=== PATIENT | female | born 1940 | race Caucasian/White ===

== ENCOUNTER 2019-12-06 10:02 | Inpatient (IN) | payer MEDICARE, SELFPAY ==
[2019-12-06] VITALS (28 sets, daily range): BP systolic 68–131; BP diastolic 32–91; PULSE 72–126; RESP 14–28; TEMP 36.2–36.6; O2SAT 83–98
--- NOTE | ~2019-12-06 | CT_ITS ---
EXAMINATION: CT brain wo con DATE: 12/06/2019 11:20 INDICATION: Lethargy. TECHNIQUE: Computed tomography (CT) of the head was performed without intravenous contrast. The dose- length product was 529.67 mGy-cm. The mA was adjusted according to patient size. Iterative reconstruc tion technique was employed. COMPARISON: No prior studies for comparison. FINDINGS: Generalized atrophy. Prominence of the lateral ventricles. There are scattered moderate per iventricular and subcortical white matter changes, most likely related to small vessel ischemic disea se (microangiopathy). No acute intracranial hemorrhage, infarction, mass or mass effect. No midline s hift. Chronic right cerebellar infarction. IMPRESSION: 1. No acute intracranial abnormality. 2: Prominent lateral ventricles which may represent hydrocephalus ex vacuo or normal pressure hydroc ephalus. 3: Chronic right cerebellar infarction. 4: Chronic age-related findings. Reviewed, dictated and finalized at location A. E PRINCIPAL SOLUTION SPECIALIST IMPRESSION: 1. No acute intracranial abnormality. 2: Prominent lateral ventricles which may represent hydrocephalus ex vacuo or normal pressure hydrocephalus. 3: Chronic right cerebellar infarction. 4: Chronic age-related findings.
--- NOTE | ~2019-12-06 | XR_ITS ---
EXAMINATION: XR chest 1V portable EXAM DATE: 12/07/2019 15:14 INDICATION: Follow-up possible pneumonia. TECHNIQUE: Portable AP frontal chest x-ray was obtained. Comparison is made to prior examination from 12/06/2019. FINDINGS: Small amount of linear retrocardiac opacity probably subsegmental atelectasis. The lungs ar e otherwise clear. There are no pleural effusions. The cardiomediastinal silhouette is within rebecca l limits. There is no pneumothorax suspected. The bones and soft tissues are unremarkable. IMPRESSION: Small amount of linear retrocardiac opacity probably subsegmental atelectasis. Reviewed, dictated and finalized at location A. IMPRESSION: Small amount of linear retrocardiac opacity probably subsegmental a telectasis.
--- NOTE | ~2019-12-06 | XR_ITS ---
EXAMINATION: XR chest 1V portable 12/06/2019 11:07 INDICATION: Lethargy. Low heart rate. PROCEDURE: AP portable chest COMPARISON: 11/12/2018 FINDINGS: Subtle left basilar infiltrates, atelectasis versus developing pneumonia. The cardiomediast inal silhouette is within normal limits. There are no pleural effusions. There is no pneumothorax s uspected. IMPRESSION: 1: Subtle left basilar infiltrates, atelectasis versus developing pneumonia. Reviewed, dictated and finalized at location A. INGS FINISHER
--- NOTE | 2019-12-06 10:05 | ECG_ITS ---
Measurements Intervals [place] Rate: 116 P: 70 MS: 106 QRS: 140 QRSD: 113 T: 57 QT: 358 QTc: 497 Interpretive Statements SINUS TACHYCARDIA WITH SHORT MS INTERVAL ATRIAL PREMATURE COMPLEX RIGHT ATRIAL ENLARGEMENT POSSIBLE LEFT ATRIAL ENLARGEMENT RIGHT AXIS DEVIATION INCOMPLETE RIGHT BUNDLE BRANCH BLOCK BORDERLINE ST-T WAVE ABNORMALITY- ANTERIOR LEADS BASELINE ARTIFACT- I, II, III, AVL, AVF, V3-V4 ABNORMAL ECG Electronically Signed On 12-06-2019 12:44:52 HAND SCREEN PRINTER by Torsten Thomas D.O.
--- NOTE | 2019-12-06 10:10 | ED.SOB ---
HPI - SOB/Dyspnea General Chief Complaint: Shortness of Breath/Dyspnea Stated Complaint: lethargic Time Seen by Provider: 12/06/19 10:11 Source: family (pt's son) and RN notes reviewed Mode of arrival: EMS Limitations: dementia History of Present Illness HPI Narrative: Pt is a 79 y/o female with a Hx of dementia, who presents to the ED via EMS with c/o SOB and lethargy. According to the pt's son, she has been increasingly lethargic for the past week. He notes that she has also been laboring to breathe. Pt's son states that her skin has started becoming more blue/purple in color. He notes that the pt hasn't had any significant cough or fever recently. Pt's son states that she had a similar episode in 2017, and notes that she was diagnosed with sepsis and pneumonia. HPI limited due to the pt's dementia. HPI given by pt's son. MD elicited complaint: shortness of breath Pertinent past history: pneumonia Onset (ago): week(s) (1) Known history of: other (pneumonia) Associated symptoms: other (blue/purple skin discoloration (per son)) Related Data Allergies Allergy/AdvReac Type Severity Reaction Status Date / Time No Known Allergies Allergy Unverified 11/12/18 15:13 Review of Systems Review of Systems: Narrative: ROS limited due to the pt's dementia. ROS given by pt's son. Constitutional: Constitutional: Denies fever(s) and Reports lethargy Respiratory: Respiratory: Denies cough and Reports dyspnea Integumentary/Breasts: Skin/Breast: Reports change in pigmentation (blue/purple skin discoloration) [facility] Past Medical History Medical History (Updated 12/18/19 @ 20:09 by Vandana Pacheco MD) Anxiety Cerebrovascular disease Completed stroke Dementia HLD (hyperlipidemia) HTN (hypertension) Hypothyroidism Surgical History Surgical History (Updated 12/06/19 @ 20:36 by Reena Reid PA-C) Hx of section x2 Status post cataract extraction Family History Family History Sibling Diabetes mellitus Patient's sister is Mother Family history of malignant neoplasm Patient's mother is Father Patient's father is Sibling Patient's brother is Other Patient's brother is in good health Patient's sister is in good health Social History Social History (Updated 12/06/19 @ 20:37 by Reena Reid PA-C) Social History: The patient lives in [place] with her son and [id number]. 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 She started smoking at the age of 16, roughly 1 pack per day, and quit about 5 years ago. No alcohol or drug use. Her son Dimas Layne is her healthcare power of assistant city attorney. She is a do not resuscitate. Smoking packs per day: 2 Smoking cigarettes per day: 40.0 Years smoked: 60 Smoking pack-years: 120.00 Smoking status: Former smoker Tobacco type: cigarettes Smoking end date: 10/01/13 Alcohol intake: never Substance use: never Gender identity (if verbalized by the patient): Female Spiritual care concerns: No Agree to blood products: Yes Exam Const: General: ill appearing HENMT: Head: normocephalic Neck: Neck: normal visual inspection Resp: Effort & Inspection: respiratory distress and tachypneic Auscultation: clear to auscultation bilaterally Cardio: Rate: tachycardic Rhythm: regular rhythm GI: GI Palp: No abdominal tenderness and Yes Soft to palpation Skin: General skin exam: other (purplish discoloration of extremities) Neuro: General: other (pt is non-verbal; moves both arms spontaneously) Extrem: General: normal to inspection, full ROM and no pedal edema Course Consultations Consultation #1: Discussed case with PA to hospitalist, Reena Reid. Accepts admission to Dr. Blue. Date: 12/06/19 Time: 12:11 Vital Signs Vital signs: Vital Signs Temperature 36.2 C L
[2019-12-06 10:33] LABS: Base Excess ABG -16.8 mEq/l (+/-2.0); Carboxyhemoglobin 0.8 % THb (0-2.0); Fractional Inspired Oxygen 36 %; HCO3 ABG 7.7 mEq/l (22.0-26.0); Methemoglobin ABG 0.3 %THb (0-1.5); Oxygen Content ABG 22.2 %vol (16.0-22.0); Oxygen Saturation ABG 93.1 % (95.0-100.0); Oxyhemoglobin 93.1 % THb (90.0-100.0); PO2 ABG 74.7 mmHg (80.0-100.0); PO2 FiO2 Ratio Arterial Blood 2.07 %; Reduced Hemoglobin 5.8 %THb (0-5.0)
[2019-12-06 10:35] LABS: PCO2 ABG 18.1 mmHg (35.0-45.0); pH ABG 7.245 (7.350-7.450)
[2019-12-06 10:36] LABS: Device NASAL CANNULA; Site Drawn LEFT BRACHIAL
[2019-12-06 10:42] LABS: Basophils Absolute Auto 0.1 K/mm3 (0.0-0.1); Basophils Percent Auto 0.5 % (0.2-1.2); Eosinophils Percent Auto 0.1 % (0-4.4); Hemoglobin 16.8 g/dL (12.0-15.0); Immature Granulocyte Absolute 0.07 K/mm3 (0.00-0.031); Immature Granulocyte Percent A 0.5 % (0-0.5); Lymphocytes Absolute Auto 2.32 K/mm3 (0.9-3.2); Lymphocytes Percent Auto 15.1 % (18.3-44.2); Mean Corpuscular HGB Conc 28.5 g/dl (32-36); Mean Corpuscular Hemoglobin 28.7 pg (26-34); Mean Corpuscular Volume 100.9 fl (80-100); Mean Platelet Volume 12.6 fl (7.4-10.4); Monocytes Absolute Auto 0.5 K/mm3 (0.1-0.6); Monocytes Percent Auto 3.2 % (2.6-8.5); Neutrophils Absolute Auto 12.4 K/mm3 (1.3-6.7); Neutrophils Percent Auto 80.6 % (45.5-73.1); Platelet Count Result 237 k/mm3 (150-375); Red Blood Count 5.85 M/mm3 (4.2-5.4); Red Cell Distribution Width 17.9 % (11.5-14.5); White Blood Count 15.4 K/mm3 (4.5-10.0)
[2019-12-06 10:57] LABS: Lactic Acid Reflex 4.7 mmol/L (0.7-2.1)
[2019-12-06 10:58] LABS: Alanine Aminotransferase 34 U/L (4-35); Albumin Level 4.3 g/dL (3.5-5.1); Alkaline Phosphatase 149 U/L (38-126); Aspartate Amino Transferase 35 U/L (14-36); Bilirubin,Total 0.4 mg/dL (0.2-1.3); Blood Urea Nitrogen 115 mg/dL (7-17); Calcium 9.3 mg/dL (8.4-10.2); Carbon Dioxide 11 mmol/L (22-30); Chloride 146 mmol/L (98-107); Estimated Glomerular Filt Rate 20; Glucose 211 mg/dL (65-105); Potassium 3.1 mmol/L (3.4-5.0); Sodium 173 mmol/L (137-145)
[2019-12-06 11:00] LABS: Add Urine Microscopic? YES; Appearance Urine Cloudy (Clear); Bacteria Urine Trace /hpf; Bilirubin Urine Negative (Negative); Blood Urine Negative (Negative); Color Urine Yellow (Yellow); Glucose Urine UA Negative (Negative); Ketones Urine Negative (Negative); Leukocyte Esterase Ur Negative LEU/UL (Negative); Mucus Urine Rare /lpf; Nitrate Urine Negative (Negative); Protein Urine 2+ mg/dL (Negative); RBC Urine 0-2 /hpf (0-2); Specific Grav Ur 1.025 (1.001-1.035); Squamous Epithelial Cell Urine Rare /hpf (Few); Urobilinogen Urine Negative mg/dL (<2.0); WBC Urine 0-3 /hpf
[2019-12-06 11:15] LABS: Partial Thromboplastin Time 24.7 SECONDS (22.3-36.8)
--- NOTE | 2019-12-06 13:28 | PC.NURSE ---
2nd liter ns hung and infusing wide open at 1315
[2019-12-06 13:40] LABS: Reflex Lactic Acid Yes or No Add Lactic
--- NOTE | 2019-12-06 13:50 | PC.NURSE ---
ns 600 cc bolus infused.
--- NOTE | 2019-12-06 14:24 | ADMGEN ---
This patient, Eve Olivo, was admitted to 3 Med Surg Room 305-01 @ 1415. Patient/family oriented to hospital policies and general routines including ID bracelet, bed and alarms, visiting hours, pain management, procedures, bathroom and other care routines, personal items, smoking policy, room service/diet, and visiting hours. Valuables list has been completed. Information on how to activate the Rapid Response Team has been discussed. Patient/Family are encouraged to report perceived risks to care and to ask questions if they do not understand what they are told or what they should do.
[2019-12-06] MEDS: DEXTROSE 5% 1,000 ML 1,000 ML 100 ML IV CONT (15:07)
[2019-12-06 17:18] LABS: Ammonia 15 umol/L (9-30)
[2019-12-06 17:20] LABS: Lactic Acid Reflex 4.1 mmol/L (0.7-2.1)
[2019-12-06 17:22] LABS: Blood Urea Nitrogen 102 mg/dL (7-17); Calcium 8.2 mg/dL (8.4-10.2); Carbon Dioxide 12 mmol/L (22-30); Chloride 142 mmol/L (98-107); Estimated CRCL calculation 17 ml/min; Estimated Glomerular Filt Rate 24; Glucose 125 mg/dL (65-105); Magnesium 2.8 mg/dL (1.6-2.3); Phosphorus 6.2 mg/dL (2.5-4.5); Potassium 3.3 mmol/L (3.4-5.0); Sodium 166 mmol/L (137-145)
[2019-12-06 17:49] LABS: Creatine Kinase 161 U/L (30-135)
[2019-12-06] MEDS: SODIUM CHLORIDE 0.45% 1,000 ML 75 ML IV CONT (17:51)
[2019-12-06 18:26] LABS: Folic Acid > 20.0 ng/mL (2.76->20)
[2019-12-06 18:30] LABS: Free T4 Free Thyroxine Reflex 0.73 ng/dL (0.78-2.19)
--- NOTE | 2019-12-06 20:29 | PM.IMHP ---
H&P: HPI History of Present Illness Chief complaint: Hypernatremia, Sepsis Narrative: Eve Olivo is a 79-year-old female with severe dementia who presented to the emergency department earlier this morning via EMS from home for evaluation of lethargy. Given her severe dementia, she is unable to provide a medical history and as such a majority of this history is obtained via a review of her electronic medical records as well as discussions with her son, Dimas, who is at bedside. The patient has lived with Dimas and his for the last couple of years. Her dementia is to the point where she is not able to hold a conversation with them, but he does note that she will sit in the living room and watch television and seems to have conversations with people who are not there, laughing frequently. She is able to help transfer to the commode and to the chair in the living room, but is otherwise not mobile. They have to encourage her to eat, and she typically consumes shakes that they make with Ensure. Over the past week or so, she has not been consuming as much as usual and really has not been drinking water either. She has become progressively more weak and sleepy. When sign went to check on her this morning, she appeared to be cyanotic with labored breathing. She was found to be profoundly dehydrated on labs with acute kidney injury (BUN 115, creatinine 2.40), hemoconcentration, and a sodium level of 173. Her lactic acid level was 4.7, and chest x-ray did demonstrate findings of possible pneumonia. With further questioning, Dimas denies that the patient has shown signs or symptoms of illness fever, cough, vomiting, and diarrhea. Review of Systems Review of Systems: Narrative: Due to the patient's severe dementia, she is unable to provide an accurate history and/or review of systems. [facility] Past Medical History Medical History (Updated 12/07/19 @ 15:29 by Sekou Blue MD) Anxiety Cerebrovascular disease Completed stroke Dementia HLD (hyperlipidemia) HTN (hypertension) Hypothyroidism Surgical History Surgical History (Updated 12/06/19 @ 20:36 by Reena Reid PA-C) Hx of section x2 Status post cataract extraction Family History Family History Sibling Diabetes mellitus Patient's sister is Mother Family history of malignant neoplasm Patient's mother is Father Patient's father is Sibling Patient's brother is Other Patient's brother is in good health Patient's sister is in good health Social History Social History (Updated 12/06/19 @ 20:37 by Reena Reid PA-C) Social History: The patient lives in [place] with her son and [id number]. 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 She started smoking at the age of 16, roughly 1 pack per day, and quit about 5 years ago. No alcohol or drug use. Her son Dimas Layne is her healthcare power of business attorney. She is a do not resuscitate. Smoking packs per day: 2 Smoking cigarettes per day: 40.0 Years smoked: 60 Smoking pack-years: 120.00 Smoking status: Former smoker Tobacco type: cigarettes Smoking end date: 10/01/13 Alcohol intake: never Substance use: never Gender identity (if verbalized by the patient): Female Spiritual care concerns: No Agree to blood products: Yes Meds Home Medications and Allergies Home Medications Medication Instructions Recorded Confirmed Type levothyroxine 75 mcg tablet 75 mcg PO DAILY #90 tablet 11/13/19 12/06/19 Rx loperamide [Anti-Diarrheal 1 mg PO DAILY 12/06/19 12/06/19 History (loperamide)] Allergies Allergy/AdvReac Type Severity Reaction Status Date / Time No Known Allergies Allergy Unverified 11/12/18 15:13 Vital Signs Vital Signs - 24 hr 12/06/19 09:59 12/06/19 10:10 12/06/19 10:15 Tem
[2019-12-06 20:57] LABS: Blood Urea Nitrogen 102 mg/dL (7-17); Carbon Dioxide 13 mmol/L (22-30); Chloride 142 mmol/L (98-107); Estimated CRCL calculation 17 ml/min; Estimated Glomerular Filt Rate 23; Glucose 83 mg/dL (65-105); Sodium 163 mmol/L (137-145)
[2019-12-07] VITALS: PULSE 103
[2019-12-07 01:02] LABS: Sodium 164 mmol/L (137-145)
--- NOTE | 2019-12-07 01:39 | PC.NURSE ---
Daylight Savings Time For Daylight Savings Time Ending in the Fall - Clocks are moved back. For Daylight Savings Time Beginning in the Spring - Clocks are moved ahead. For [facility], the time of change occurs at 0200 hrs. Time is taken from the sql server dba developer. This entry on the patient's chart recognizes the change in time reflected during documentation. Example: 2 entries for vital signs may be charted for 0200 hrs.
[2019-12-07 04:00] VITALS: PULSE 100
[2019-12-07 05:35] VITALS: BP 134/64; PULSE 111; RESP 20; TEMP 36.8; O2SAT 93
[2019-12-07] MEDS: LEVOTHYROXINE SODIUM 75 MCG TABLET PO (06:11)
[2019-12-07 06:26] LABS: Basophils Percent Auto 0.4 % (0.2-1.2); Eosinophils Percent Auto 0.2 % (0-4.4); Hematocrit 41.5 % (37.0-47.0); Hemoglobin 12.1 g/dL (12.0-15.0); Immature Granulocyte Absolute 0.05 K/mm3 (0.00-0.031); Immature Granulocyte Percent A 0.5 % (0-0.5); Lymphocytes Absolute Auto 1.96 K/mm3 (0.9-3.2); Lymphocytes Percent Auto 18.2 % (18.3-44.2); Mean Corpuscular HGB Conc 29.2 g/dl (32-36); Mean Corpuscular Hemoglobin 28.3 pg (26-34); Mean Corpuscular Volume 97.2 fl (80-100); Mean Platelet Volume 12.7 fl (7.4-10.4); Monocytes Absolute Auto 0.5 K/mm3 (0.1-0.6); Monocytes Percent Auto 4.7 % (2.6-8.5); Neutrophils Absolute Auto 8.2 K/mm3 (1.3-6.7); Platelet Count Result 134 k/mm3 (150-375); Red Blood Count 4.27 M/mm3 (4.2-5.4); Red Cell Distribution Width 16.3 % (11.5-14.5); White Blood Count 10.8 K/mm3 (4.5-10.0)
[2019-12-07 06:52] LABS: Blood Urea Nitrogen 94 mg/dL (7-17); Calcium 8.3 mg/dL (8.4-10.2); Carbon Dioxide 13 mmol/L (22-30); Chloride 144 mmol/L (98-107); Estimated CRCL calculation 18 ml/min; Estimated Glomerular Filt Rate 26; Glucose 85 mg/dL (65-105); Magnesium 2.8 mg/dL (1.6-2.3); Phosphorus 5.5 mg/dL (2.5-4.5); Potassium 3.4 mmol/L (3.4-5.0); Sodium 165 mmol/L (137-145)
[2019-12-07 07:20] LABS: Creatine Kinase 3769 U/L (30-135)
[2019-12-07 08:00] VITALS: PULSE 96
--- NOTE | 2019-12-07 08:54 | PC.NURSE ---
Tele results reviewed with Dr Blue as well as am lab results - orders.
[2019-12-07 09:58] LABS: Sodium 163 mmol/L (137-145)
--- NOTE | 2019-12-07 12:55 | PC.NURSE ---
Dr Blue notified of IV infiltration to L ACF - k pad ordered and applied.
[2019-12-07 14:34] LABS: Blood Urea Nitrogen 84 mg/dL (7-17); Calcium 8.2 mg/dL (8.4-10.2); Carbon Dioxide 18 mmol/L (22-30); Chloride 139 mmol/L (98-107); Estimated CRCL calculation 21 ml/min; Estimated Glomerular Filt Rate 29; Glucose 83 mg/dL (65-105); Potassium 3.1 mmol/L (3.4-5.0); Sodium 163 mmol/L (137-145)
--- NOTE | 2019-12-07 15:13 | PM.IMPN ---
Progress Note: A&P Assessment and Plan (1) Hypernatremia: Code(s): E87.0 - Hyperosmolality and hypernatremia Status: Acute Assessment and Plan: IV D5w with KCL Then D5/0.45% NaCL F/u lab (2) Acute kidney injury: Code(s): N17.9 - Acute kidney failure, unspecified Status: Acute Assessment and Plan: Improved from 2.4 to 1.7 with hydration (3) Pneumonia: Qualifiers: Laterality: left Lung location: lower lobe of lung Pneumonia type: due to unspecified organism Qualified Code(s): J18.9 - Pneumonia, unspecified organism Code(s): J18.9 - Pneumonia, unspecified organism Status: Acute Assessment and Plan: Ephemeral infiltrate on initial CXR Repeat CXR after hydration Day 2 ceftriaxone and azithromycin (4) Sepsis: Qualifiers: Sepsis acute organ dysfunction status: with acute organ dysfunction Sepsis type: sepsis due to unspecified organism Severe sepsis acute organ dysfunction type: acute renal failure Severe sepsis shock status: with septic shock Acute renal failure type: unspecified Qualified Code(s): A41.9 - Sepsis, unspecified organism; R65.21 - Severe sepsis with septic shock; N17.9 - Acute kidney failure, unspecified Code(s): A41.9 - Sepsis, unspecified organism Status: Acute Assessment and Plan: Pneumonia vs skin source vs nonifectious etiology (dehydration) (5) Metabolic encephalopathy: Code(s): G93.41 - Metabolic encephalopathy Status: Acute Assessment and Plan: Due to above (6) HTN (hypertension): Qualifiers: Hypertension type: essential hypertension Qualified Code(s): I10 - Essential (primary) hypertension Code(s): I10 - Essential (primary) hypertension Status: Acute Assessment and Plan: Monitor (7) Hypothyroidism: Qualifiers: Hypothyroidism type: acquired Qualified Code(s): E03.9 - Hypothyroidism, unspecified Code(s): E03.9 - Hypothyroidism, unspecified Status: Acute Assessment and Plan: Continue levothyroxine (8) Dementia: Qualifiers: Dementia type: vascular dementia Dementia behavioral disturbance: with behavioral disturbance Qualified Code(s): F01.51 - Vascular dementia with behavioral disturbance Code(s): F03.90 - Unspecified dementia without behavioral disturbance Status: Acute Assessment and Plan: Vascular with behavioral disturbance (resistance to care, cursing) PPS 30 at baseline, now likely 20 Family would like to meet with hospice (9) Dehydration: Code(s): E86.0 - Dehydration Status: Acute Assessment and Plan: IVF F/u lab (10) Cerebrovascular disease: Code(s): I67.9 - Cerebrovascular disease, unspecified Status: Acute Subjective Date/time seen: 12/07/19 15:13 Interval history: Admitted 12/05 due to lethargy. Loose stool 12/05. Eats some soft foods at baseline. Mostly smoothies. Hand fed. Straw to drink. Bed bound. Incontinent. Pressure sore right heel. Interacts some and smiles. Old stroke. Review of Systems Review of Systems: ROS unobtainable: unobtainable due to mental status Exam Narrative: Exam Narrative: General: Elderly female fidgeting in her hospital bed Skin: 1.5cm stage 2 ulcer right heel HEENT: EOMI, PERRL, pharyngeal mucosa pink and intact NECK: No JVD, adenopathy, or thyromegaly CHEST: Clear to auscultation. Normal effort. HEART: NL S1/S2, regular, no murmur ABDOMEN: BS+, soft, nontender, no mass, no bruits EXTREMITIES: No cyanosis, edema, or clubbing NEUROLOGIC: CN intact and symmetric to inspection. MUSCULOSKELETAL: diffuse muscle wasting PSYCH: Drowsy. Arouses easily. Resists exam. Does not follow commands. Objective Data Vital Signs Vital Signs: Vital Signs - 24 hr 12/06/19 14:15 12/06/19 14:54 12/06/19 16:00 Temperature 97.2 F L Pulse Rate 72 84 104 H Respiratory Rate 16 14 Blood Pres
--- NOTE | 2019-12-07 15:46 | PCSTNOTE ---
12-07-2019: ST bedside swallow evaluation unable to be completed this date.
[2019-12-07 16:15] VITALS: BP 96/72; PULSE 84; RESP 16; TEMP 36.4; O2SAT 92
[2019-12-07 17:45] LABS: Sodium 160 mmol/L (137-145)
[2019-12-07] MEDS: POTASSIUM CHLORIDE INJ 10 MEQ in DEXTROSE 5%/0.45% SOD CHL 1,000 ML 75 MEQ IV CONT (21:44)
[2019-12-07 22:00] VITALS: BP 115/46; PULSE 104; RESP 20; TEMP 36.7; O2SAT 98
[2019-12-07 22:37] LABS: Blood Urea Nitrogen 68 mg/dL (7-17); Calcium 7.9 mg/dL (8.4-10.2); Carbon Dioxide 11 mmol/L (22-30); Chloride 142 mmol/L (98-107); Estimated CRCL calculation 23 ml/min; Estimated Glomerular Filt Rate 31; Glucose 72 mg/dL (65-105); Potassium 3.8 mmol/L (3.4-5.0); Sodium 160 mmol/L (137-145)
[2019-12-08 06:00] VITALS: BP 105/50; PULSE 92; RESP 18; TEMP 36.3; O2SAT 93
[2019-12-08 06:37] LABS: Hematocrit 37.1 % (37.0-47.0); Hemoglobin 10.8 g/dL (12.0-15.0); Mean Corpuscular HGB Conc 29.1 g/dl (32-36); Mean Corpuscular Hemoglobin 28.4 pg (26-34); Mean Corpuscular Volume 97.6 fl (80-100); Mean Platelet Volume 12.6 fl (7.4-10.4); Platelet Count Result 118 k/mm3 (150-375); Red Cell Distribution Width 16.3 % (11.5-14.5); White Blood Count 9.8 K/mm3 (4.5-10.0)
[2019-12-08] MEDS: LEVOTHYROXINE SODIUM 75 MCG TABLET PO (06:54)
[2019-12-08 07:01] LABS: Blood Urea Nitrogen 54 mg/dL (7-17); Calcium 8.1 mg/dL (8.4-10.2); Carbon Dioxide 12 mmol/L (22-30); Chloride 141 mmol/L (98-107); Estimated CRCL calculation 26 ml/min; Estimated Glomerular Filt Rate 36; Glucose 82 mg/dL (65-105); Magnesium 2.5 mg/dL (1.6-2.3); Sodium 158 mmol/L (137-145)
--- NOTE | 2019-12-08 09:30 | PCSTNOTE ---
Please refer to the Bedside Swallow Evaluation in the EMR.
[2019-12-08] MEDS: POTASSIUM CHLORIDE INJ 10 MEQ in DEXTROSE 5%/0.45% SOD CHL 1,000 ML 75 MEQ IV CONT (10:49)
[2019-12-08 14:00] VITALS: BP 92/51; PULSE 98; RESP 18; TEMP 36.8; O2SAT 93
--- NOTE | 2019-12-08 16:46 | PM.IMPN ---
Progress Note: A&P Assessment and Plan (1) Hypernatremia: Code(s): E87.0 - Hyperosmolality and hypernatremia Status: Acute Assessment and Plan: IV D5/NaHCO3 alt with D5/0.45% Nacl F/u lab (2) Acute kidney injury: Code(s): N17.9 - Acute kidney failure, unspecified Status: Acute Assessment and Plan: Improved from 2.4 to 1.4 with hydration (3) Pneumonia: Qualifiers: Pneumonia type: due to unspecified organism Laterality: left Lung location: lower lobe of lung Qualified Code(s): J18.9 - Pneumonia, unspecified organism Code(s): J18.9 - Pneumonia, unspecified organism Status: Acute Assessment and Plan: Almost imperceptible infiltrate noted initial CXR Repeat CXR after hydration Day 3 ceftriaxone and azithromycin (4) Sepsis: Qualifiers: Sepsis type: sepsis due to unspecified organism Sepsis acute organ dysfunction status: with acute organ dysfunction Severe sepsis acute organ dysfunction type: acute renal failure Acute renal failure type: unspecified Severe sepsis shock status: with septic shock Qualified Code(s): A41.9 - Sepsis, unspecified organism; R65.21 - Severe sepsis with septic shock; N17.9 - Acute kidney failure, unspecified Code(s): A41.9 - Sepsis, unspecified organism Status: Acute Assessment and Plan: Pneumonia vs skin source vs nonifectious etiology (dehydration) (5) Metabolic encephalopathy: Code(s): G93.41 - Metabolic encephalopathy Status: Acute Assessment and Plan: Due to above (6) HTN (hypertension): Qualifiers: Hypertension type: essential hypertension Qualified Code(s): I10 - Essential (primary) hypertension Code(s): I10 - Essential (primary) hypertension Status: Acute Assessment and Plan: Monitor (7) Hypothyroidism: Qualifiers: Hypothyroidism type: acquired Qualified Code(s): E03.9 - Hypothyroidism, unspecified Code(s): E03.9 - Hypothyroidism, unspecified Status: Acute Assessment and Plan: Continue levothyroxine (8) Dementia: Qualifiers: Dementia type: vascular dementia Dementia behavioral disturbance: with behavioral disturbance Qualified Code(s): F01.51 - Vascular dementia with behavioral disturbance Code(s): F03.90 - Unspecified dementia without behavioral disturbance Status: Acute Assessment and Plan: Vascular with behavioral disturbance (resistance to care, cursing) PPS 30 at baseline, now likely 20 Family would like to meet with hospice (9) Dehydration: Code(s): E86.0 - Dehydration Status: Acute Assessment and Plan: IVF F/u lab (10) Cerebrovascular disease: Code(s): I67.9 - Cerebrovascular disease, unspecified Status: Acute Subjective Date/time seen: 12/08/19 16:46 Interval history: Slept most of the day. Woke up a bit more alert. Being hand fed by [id number]-sm-vip. Tolerating her soft foods so far. Speech therapist noted some difficulty on bedside swallow evaluation. However family does not wish to pursue swallow study as they are to meet with hospice this evening. Review of Systems Review of Systems: ROS unobtainable: unobtainable due to mental status Exam Narrative: Exam Narrative: General: Elderly female fidgeting in her hospital bed Skin: 1.5cm stage 2 ulcer right heel HEENT: EOMI, PERRL, pharyngeal mucosa pink and intact NECK: No JVD, adenopathy, or thyromegaly CHEST: Clear to auscultation. Normal effort. HEART: NL S1/S2, regular, no murmur ABDOMEN: BS+, soft, nontender, no mass, no bruits EXTREMITIES: No cyanosis, edema, or clubbing NEUROLOGIC: CN intact and symmetric to inspection. MUSCULOSKELETAL: diffuse muscle wasting PSYCH: Drowsy. Arouses easily. Resists exam. Does not follow commands. Objective Data Vital Signs Vital Signs: Vital Signs - 24 hr 12/07/19 22:00 12/08/19 06:00 12/08/19
[2019-12-08 22:00] VITALS: BP 110/47; PULSE 74; RESP 18; TEMP 36.2; O2SAT 91
[2019-12-09] MEDS: LEVOTHYROXINE SODIUM 75 MCG TABLET PO (05:55)
[2019-12-09 06:00] VITALS: BP 102/47; PULSE 85; RESP 20; TEMP 36.9; O2SAT 100
[2019-12-09 14:00] VITALS: BP 90/74; PULSE 84; RESP 18; TEMP 36.4; O2SAT 90
--- NOTE | 2019-12-09 16:42 | PM.IMPN ---
Progress Note: A&P Assessment and Plan (1) Hypernatremia: Code(s): E87.0 - Hyperosmolality and hypernatremia Status: Acute Assessment and Plan: IV D5/NaHCO3 alt with D5/0.45% Nacl F/u lab, sodium down to 158 and a creatinine at 1.4 today (2) Acute kidney injury: Code(s): N17.9 - Acute kidney failure, unspecified Status: Acute Assessment and Plan: Improved from 2.4 to 1.4 with hydration continue gentle hydration (3) Pneumonia: Qualifiers: Pneumonia type: due to unspecified organism Laterality: left Lung location: lower lobe of lung Qualified Code(s): J18.9 - Pneumonia, unspecified organism Code(s): J18.9 - Pneumonia, unspecified organism Status: Acute Assessment and Plan: Almost imperceptible infiltrate noted initial CXR Repeat CXR after hydration Day 4 ceftriaxone and azithromycin, will plan on 5-7 days only (4) Sepsis: Qualifiers: Sepsis type: sepsis due to unspecified organism Sepsis acute organ dysfunction status: with acute organ dysfunction Severe sepsis acute organ dysfunction type: acute renal failure Acute renal failure type: unspecified Severe sepsis shock status: with septic shock Qualified Code(s): A41.9 - Sepsis, unspecified organism; R65.21 - Severe sepsis with septic shock; N17.9 - Acute kidney failure, unspecified Code(s): A41.9 - Sepsis, unspecified organism Status: Acute Assessment and Plan: Pneumonia vs skin source vs nonifectious etiology (dehydration) (5) Metabolic encephalopathy: Code(s): G93.41 - Metabolic encephalopathy Status: Acute Assessment and Plan: Due to above (6) HTN (hypertension): Qualifiers: Hypertension type: essential hypertension Qualified Code(s): I10 - Essential (primary) hypertension Code(s): I10 - Essential (primary) hypertension Status: Acute Assessment and Plan: Monitor (7) Hypothyroidism: Qualifiers: Hypothyroidism type: acquired Qualified Code(s): E03.9 - Hypothyroidism, unspecified Code(s): E03.9 - Hypothyroidism, unspecified Status: Acute Assessment and Plan: Continue levothyroxine (8) Dementia: Qualifiers: Dementia type: vascular dementia Dementia behavioral disturbance: with behavioral disturbance Qualified Code(s): F01.51 - Vascular dementia with behavioral disturbance Code(s): F03.90 - Unspecified dementia without behavioral disturbance Status: Acute Assessment and Plan: Vascular with behavioral disturbance (resistance to care, cursing) PPS 30 at baseline, now likely 20 Family talked with hospice and will plan on pursuing that on discharge (9) Dehydration: Code(s): E86.0 - Dehydration Status: Acute Assessment and Plan: IVF F/u lab and continue hydration (10) Cerebrovascular disease: Code(s): I67.9 - Cerebrovascular disease, unspecified Status: Acute Assessment and Plan: Vascular dementia stable Subjective Date/time seen: 12/09/19 16:42 Interval history: Date of visit 12/08 . a bit more alert. Being hand fed by [id number]. Tolerating her soft foods so far. Speech therapist noted some difficulty on bedside swallow evaluation. However family does not wish to pursue swallow study as they have met with hospice and plan on proceeding with hospice program on discharge. Exam Narrative: Exam Narrative: Blood pressure 100/50 pulse is 84 saturating 90% on 2 L General: Elderly female not responding to verbal stimuli Skin: 1.5cm stage 2 ulcer right heel HEENT: , PERRL, NECK: No JVD, supple CHEST: Clear to auscultation. Normal effort. HEART: NL S1/S2, regular, no murmur ABDOMEN: BS+, soft, nontender, no mass, no bruits EXTREMITIES: No cyanosis, edema, or clubbing NEUROLOGIC: No focal deficits and as above not responding to any verbal stimuli MUSCULOSKELETAL: diffuse muscle wasting.
[2019-12-09 22:00] VITALS: BP 103/54; PULSE 88; RESP 18; TEMP 37.3; O2SAT 92
--- NOTE | 2019-12-09 22:05 | PC.NURSE ---
Notified the pharmacist that the times for the patient's scheduled alternating Sodium Bicarb and D5 1/2NS w/ K are not ending at the scheduled times so they are being hung at different times than what they're scheduled at. Pharmacist said to just run the bags through and then hang the next bag whenever one is done even if they are not on time.
[2019-12-10 06:00] VITALS: BP 116/81; PULSE 90; RESP 16; TEMP 37.2; O2SAT 99
[2019-12-10 06:06] LABS: Basophils Percent Auto 0.1 % (0.2-1.2); Eosinophils Absolute Auto 0.1 K/mm3 (0-0.3); Eosinophils Percent Auto 1.5 % (0-4.4); Hematocrit 34.5 % (37.0-47.0); Hemoglobin 10.7 g/dL (12.0-15.0); Immature Granulocyte Absolute 0.06 K/mm3 (0.00-0.031); Immature Granulocyte Percent A 0.7 % (0-0.5); Lymphocytes Absolute Auto 2.15 K/mm3 (0.9-3.2); Lymphocytes Percent Auto 26.1 % (18.3-44.2); Mean Corpuscular Volume 90.3 fl (80-100); Monocytes Absolute Auto 0.3 K/mm3 (0.1-0.6); Monocytes Percent Auto 3.9 % (2.6-8.5); Neutrophils Absolute Auto 5.6 K/mm3 (1.3-6.7); Neutrophils Percent Auto 67.7 % (45.5-73.1); Platelet Count Result 119 k/mm3 (150-375); Red Blood Count 3.82 M/mm3 (4.2-5.4); Red Cell Distribution Width 15.3 % (11.5-14.5); White Blood Count 8.2 K/mm3 (4.5-10.0)
[2019-12-10] MEDS: LEVOTHYROXINE SODIUM 75 MCG TABLET PO (06:27)
[2019-12-10 06:32] LABS: Lactic Acid 1.3 mmol/L (0.7-2.1)
[2019-12-10 07:55] LABS: Blood Urea Nitrogen 21 mg/dL (7-17); Calcium 7.5 mg/dL (8.4-10.2); Carbon Dioxide 21 mmol/L (22-30); Chloride 120 mmol/L (98-107); Estimated CRCL calculation 40 ml/min; Estimated Glomerular Filt Rate > 60; Glucose 90 mg/dL (65-105); Potassium 3.4 mmol/L (3.4-5.0); Sodium 145 mmol/L (137-145)
[2019-12-10 14:00] VITALS: BP 135/91; PULSE 54; RESP 18; TEMP 36.7; O2SAT 91
--- NOTE | 2019-12-10 15:16 | PM.IMPN ---
Progress Note: A&P Assessment and Plan (1) Hypernatremia: Code(s): E87.0 - Hyperosmolality and hypernatremia Status: Acute Assessment and Plan: IV D5/NaHCO3 alt with D5/0.45% Nacl F/u lab, sodium down to 145 and a creatinine at 0.9 and co2 up to 21 today will d/c IV fluid (2) Acute kidney injury: Code(s): N17.9 - Acute kidney failure, unspecified Status: Acute Assessment and Plan: Improved from 2.4 to 0.9 with hydration continue gentle hydration (3) Pneumonia: Qualifiers: Pneumonia type: due to unspecified organism Laterality: left Lung location: lower lobe of lung Qualified Code(s): J18.9 - Pneumonia, unspecified organism Code(s): J18.9 - Pneumonia, unspecified organism Status: Acute Assessment and Plan: Almost imperceptible infiltrate noted initial CXR Repeat CXR after hydration Day 5 ceftriaxone and azithromycin, will plan on 5-7 days only (4) Sepsis: Qualifiers: Sepsis type: sepsis due to unspecified organism Sepsis acute organ dysfunction status: with acute organ dysfunction Severe sepsis acute organ dysfunction type: acute renal failure Acute renal failure type: unspecified Severe sepsis shock status: with septic shock Qualified Code(s): A41.9 - Sepsis, unspecified organism; R65.21 - Severe sepsis with septic shock; N17.9 - Acute kidney failure, unspecified Code(s): A41.9 - Sepsis, unspecified organism Status: Acute Assessment and Plan: Pneumonia vs skin source vs nonifectious etiology (dehydration) (5) Metabolic encephalopathy: Code(s): G93.41 - Metabolic encephalopathy Status: Acute Assessment and Plan: Due to above (6) HTN (hypertension): Qualifiers: Hypertension type: essential hypertension Qualified Code(s): I10 - Essential (primary) hypertension Code(s): I10 - Essential (primary) hypertension Status: Acute Assessment and Plan: Monitor (7) Hypothyroidism: Qualifiers: Hypothyroidism type: acquired Qualified Code(s): E03.9 - Hypothyroidism, unspecified Code(s): E03.9 - Hypothyroidism, unspecified Status: Acute Assessment and Plan: Continue levothyroxine (8) Dementia: Qualifiers: Dementia type: vascular dementia Dementia behavioral disturbance: with behavioral disturbance Qualified Code(s): F01.51 - Vascular dementia with behavioral disturbance Code(s): F03.90 - Unspecified dementia without behavioral disturbance Status: Acute Assessment and Plan: Vascular with behavioral disturbance (resistance to care, cursing) PPS 30 at baseline, now likely 20 Family talked with hospice and will plan on pursuing that on discharge 12/10 (9) Dehydration: Code(s): E86.0 - Dehydration Status: Acute Assessment and Plan: IVF resolving as above (10) Cerebrovascular disease: Code(s): I67.9 - Cerebrovascular disease, unspecified Status: Acute Assessment and Plan: Vascular dementia stable Subjective Date/time seen: 12/10/19 15:16 Interval history: Date of visit 12/09 . a bit more alert each day. Being hand fed by [id number]. Tolerating her soft foods so far. Speech therapist noted some difficulty on bedside swallow evaluation. However family does not wish to pursue swallow study as they have met with hospice and plan on proceeding with hospice program on discharge tomorrow Exam Narrative: Exam Narrative: Blood pressure 116/80 pulse is 90 saturating 92% on 2 L General: Elderly female not responding to verbal stimuli Skin: 1.5cm stage 2 ulcer right heel HEENT: , PERRL, NECK: No JVD, supple CHEST: Clear to auscultation. Normal effort. HEART: NL S1/S2, regular, no murmur ABDOMEN: BS+, soft, nontender, no mass, no bruits EXTREMITIES: No cyanosis, edema, or clubbing NEUROLOGIC: No focal deficits and as above not responding to any verbal sti
[2019-12-10 20:00] VITALS: PULSE 100; RESP 18; O2SAT 97
[2019-12-10 22:00] VITALS: BP 96/28; PULSE 100; RESP 18; TEMP 37.3; O2SAT 97
[2019-12-11] MEDS: LEVOTHYROXINE SODIUM 75 MCG TABLET PO (05:28)
[2019-12-11 06:00] VITALS: BP 102/51; PULSE 94; RESP 18; TEMP 36.7; O2SAT 97
[2019-12-11] MEDS: cefTRIAXone 1 GM VIAL IM (12:05)
[2019-12-11] MEDS: AZITHROMYCIN 200 MG/5 ML SUSPENSION UD 250 MG PO (12:29)
--- NOTE | 2019-12-11 17:53 | PM.DS ---
DS: Diagnosis Admitting Diagnosis Admitting Diagnosis: Hyperosmolality and hypernatremia Discharge Diagnosis (1) Sepsis: Qualifiers: Sepsis type: sepsis due to unspecified organism Sepsis acute organ dysfunction status: with acute organ dysfunction Severe sepsis acute organ dysfunction type: acute renal failure Acute renal failure type: unspecified Severe sepsis shock status: with septic shock Qualified Code(s): A41.9 - Sepsis, unspecified organism; R65.21 - Severe sepsis with septic shock; N17.9 - Acute kidney failure, unspecified Code(s): A41.9 - Sepsis, unspecified organism Status: Acute Assessment and Plan: sepsis, with chest x-ray demonstrating left basilar infiltrates, atelectasis versus developing pneumonia. Treated as pneumonia with 5 days ceftriaxone and azithromycin Sepsis criteria is met on admission and supported by tachycardia, leukocytosis, acute kidney injury, and lactic acidosis. Her profound dehydration, hypovolemia, and relative hypotension could also explain the above findings. She has received IV fluid rehydration, . Blood cultures have been obtained and were no growth (2) Metabolic encephalopathy: Code(s): G93.41 - Metabolic encephalopathy Status: Acute Assessment and Plan: Secondary to profound uremia, hypernatremia, and dehydration. She also has underlying dementia. After rehydration she is much more alert and was taking nourishment with assistance (3) Acute kidney injury: Code(s): N17.9 - Acute kidney failure, unspecified Status: Acute Assessment and Plan: Secondary to profound dehydration and hypoperfusion given episodes of hypotension emergency department. Mulligan catheter was inserted for close monitoring of I/O. She received IV fluid rehydration hand day before discharge her sodium was down to 145 with a BUN of 21 and a creatinine 0.9 (4) Dementia: Qualifiers: Dementia type: vascular dementia Dementia behavioral disturbance: with behavioral disturbance Qualified Code(s): F01.51 - Vascular dementia with behavioral disturbance Code(s): F03.90 - Unspecified dementia without behavioral disturbance Status: Acute Assessment and Plan: Patient is at end-stage dementia. Long conversation with family at bedside, and they entered hospice on discharge. And will take patient home for in-home hospice care (5) Hypothyroidism: Qualifiers: Hypothyroidism type: acquired Qualified Code(s): E03.9 - Hypothyroidism, unspecified Code(s): E03.9 - Hypothyroidism, unspecified Status: Acute Assessment and Plan: Continue levothyroxine. TSH normal. DS: Summary Hospital Course Hospital Course: 79-year-old severely demented white female admitted from nursing facility with severe dehydration, hypernatremia, altered mental status and sepsis. Thought to have mild left lower lobe infiltrate and was treated for pneumonia while here. After hydration she returned her baseline mental status and sodium felt to 145 in creatinine to 0.9 P.o. intake with still marginal and family elected to take her home and under hospice. Time Spent with Patient Time attestation: Total time spent providing and/or coordinating discharge services: 35 minutes Exam Narrative: Exam Narrative: Condition on discharge Blood pressure 102/52 pulse is 94 respirations 18 per minute saturating 96% on room air Lungs clear CV regular rate rhythm Abdomen soft nontender Extremities without edema Neuro she was alert she was conversant but back to her baseline dementia She was taking nourishment with assistance and will be discharge home with family and hospice program with [facility] DS: Data Data Completed and Pending Labs on day of discharge: Preliminary micro results at discharge 12/06/19 10:28 Blood Culture - Preliminary Blood 12/06/19 10:28 Blood Culture - Preliminary Bl
== END 2019-12-11 14:43 | disposition hospice, home (50) | DRG 871 ==
LOC: ANHED 12:42 → ANH3MEDSUR 20:51
PROVIDERS: Physician Assistant; Admitting Provider Internal Medicine; Emergency Provider Emergency Medicine; PCP Emergency Medicine; Visit Provider Internal Medicine
DX: A41.9 Sepsis, unspecified organism (principal); J18.9 Pneumonia, unspecified organism; G93.41 Metabolic encephalopathy; R65.21 Severe sepsis with septic shock; E87.0 Hyperosmolality and hypernatremia; N17.9 Acute kidney failure, unspecified; F03.90 Unspecified dementia, unspecified severity, without behavioral disturbance, psychotic disturbance, mood disturbance, and anxiety; F41.9 Anxiety disorder, unspecified; I67.9 Cerebrovascular disease, unspecified; Z86.73 Personal history of transient ischemic attack (TIA), and cerebral infarction without residual deficits; I10 Essential (primary) hypertension; Z98.49 Cataract extraction status, unspecified eye; Z87.891 Personal history of nicotine dependence; E86.0 Dehydration; E03.9 Hypothyroidism, unspecified
CPT/HCPCS: 36415; 36600; 70450; 71045; 80048; 80053; 81001; 82140; 82375; 82550; 82607; 82746; 82805; 83050; 83605; 83735; 84100; 84295; 84439; 84443; 85025; 85027; 85730; 87040; 92610; 93005; 96365; 96367; 99285; A9270; J0456; J0696; J3480; J7060; J7070; J7120